=== PATIENT | male | born 1995 | race Caucasian/White ===

== ENCOUNTER 2022-10-31 09:34 | Emergency (ER) | payer OTHER, SELFPAY ==
--- NOTE | ~2022-10-31 | CT_ITS ---
EXAMINATION: CT thoracic spine wo con DATE: 10/31/2022 10:17 INDICATION: Mid back pain post injury while lifting TECHNIQUE: Computed tomography (CT) of the thoracic spine was performed without intravenous contrast. Automated exposure control and iterative reconstruction technique were employed. The dose-length pro duct was 921.24 mGy-cm. COMPARISON: CT abdomen and pelvis dated 08/31/2015 FINDINGS: 15 degrees thoracic dextroscoliosis. Sagittal alignment is normal. No significant change in chronic mild anterior wedging from T7 through T11 along with multiple Schmorl's nodes along all of t he endplates in the inferior endplate of T7 through the superior endplate of L1 which may reflect seq uela of prior Scheuermann's disease. No acute fractures. Multilevel minimal to mild disc height loss from T2-T3 through T12-L1. Multilevel mild facet osteoarthritis throughout the thoracic spine. No susie tral canal or neural foraminal stenosis. Visualized portion of the lungs are clear. Calcified right h ilar lymph nodes consistent with old granulomatous disease. IMPRESSION: 1. 15 degree thoracic dextroscoliosis with mild spondylosis. No acute osseous abnormality. 2. Stable appearance of chronic mild anterior wedging of multiple vertebral bodies along with multipl e Schmorl's nodes throughout the mid to lower thoracic spine which may reflect sequela of chronic Syed euermann's disease. Reviewed, dictated and finalized at location A. IMPRESSION: 1. 15 degree thoracic dextroscoliosis with mild spondylosis. No acute osseous a bnormality. 2. Stable appearance of chronic mild anterior wedging of multiple vertebral bod ies along with multiple Schmorl's nodes throughout the mid to lower thoracic sp ine which may reflect sequela of chronic Scheuermann's disease.
[2022-10-31 09:34] VITALS: BP 130/97; PULSE 70; RESP 14; TEMP 37.2; O2SAT 100
[2022-10-31 09:48] VITALS: BP 130/97; PULSE 70; RESP 14; O2SAT 100
--- NOTE | 2022-10-31 09:56 | ED.BACK ---
HPI - Back Pain/Injury General Chief Complaint: Back Pain/Injury Stated Complaint: back pain right side Time Seen by Provider: 10/31/22 09:55 Source: patient and RN notes reviewed Mode of arrival: ambulatory Limitations: no limitations History of Present Illness HPI Narrative: patient states he was lifting something at home last evening that was 50 60 lb. He says that he lifted wrong felt a pop on the right side of his back and now has significant pain on the right side as well. He denies any other paresthesias or weakness in his lower extremities. MD elicited complaint: back injury Pertinent past history: recent trauma Onset (ago): day(s) (1) Timing: constant Severity: moderate Similar Symptoms Previously: No Quality: sharp, stabbing and spasming Location: right upper back Radiation: none Exacerbating factors: movement, walking and deep breaths Relieving factors: immobilization Context: while lifting Associated symptoms: denies other symptoms Work related injury: No Related Data Home Medications Medication Instructions Recorded Confirmed divalproex 250 mg tablet,delayed 250 mg PO BID 10/31/22 10/31/22 release escitalopram oxalate 10 mg tablet 10 mg PO DAILY 10/31/22 10/31/22 Allergies Allergy/AdvReac Type Severity Reaction Status Date / Time Penicillins Allergy Mild Anaphylaxis Verified 10/31/22 09:47 Review of Systems Review of Systems: All systems reviewed & are unremarkable except as noted in HPI and below PMFSH Past Medical History Medical History (Updated 10/31/22 @ 11:01 by Kit Rao MD) Bipolar 1 disorder Social History Social History (Updated 10/31/22 @ 09:56 by Kit Rao MD) Smoking packs per day: 1 Smoking cigarettes per day: 20.0 Smoking status: Current every day smoker Tobacco type: cigarettes Exam Const: General: healthy appearing, no acute distress and alert Nutritional Appearance: well nourished Orientation/consciousness: patient oriented x3 Limitations: no limitations HENMT: Head: normal to inspection Ears: external ears normal Face/Nose/Sinus: Normal external nose present Face and sinus: normal facial exam Mouth: Yes moist mucous membranes Eyes: Conjunctivae: conjunctivae normal Pupils: Equal, round and reactive pupils present EOM: EOMs intact bilaterally Neck: Neck: normal visual inspection Resp: Effort & Inspection: normal respiratory effort Auscultation: clear to auscultation bilaterally Cardio: Rate: regular rate Rhythm: regular rhythm GI: GI Palp: Yes Soft to palpation and No Tenderness to palpation present (GI) Auscultation: normal bowel sounds Back/Spine/Pelvis: Cervical Spine: cervical ROM normal Thoracic/Lumbar Spine: straight leg raise negative bilaterally, pain with thoraco-lumbar ROM, paraspinal muscle tenderness on the right in the mid thoracic and in the lower thoracic, thoraco-lumbar ROM limited with forward flexion, with lateral flexion to the right, with rotation to the right and with rotation to the left and No thoracic spinal tenderness Skin: General skin exam: normal color Rashes: no rashes Neuro: General: patient oriented x3, moves all extremities, no focal motor deficits and CN's II-XI intact bilaterally Speech: normal speech Gait exam (Neuro): Normal gait present Extrem: General: normal to inspection and no clubbing, cyanosis or edema Psych: Mental Status: mental status grossly normal Affect: normal affect Attitude: cooperative Course Vital Signs Vital signs: Vital Signs Temperature 37.2 C 10/31/22 09:34 Pulse Rate 70 10/31/22 09:34 Respiratory Rate 14 10/31/22 09:34 Blood Pressure 130/97 H 10/31/22 09:34 Pulse Oximetry 100 10/31/22 09:34 Oxygen Delivery Room Air 10/31/22 09:34 Temperature 37.2 C 10/31/22 09:34 Pulse Rate 70 10/31/22 09:48 Respiratory Rate 14 10/31/22 09:48 Blood Pressure 130/97 H 10/31/22 09:48 Pulse Oximetry 100 10/31/22 09:48 Oxygen Delivery Ro
[2022-10-31] MEDS: KETOROLAC (*BKC) 60 MG/2 ML VIAL IM (10:18)
[2022-10-31 11:06] VITALS: BP 128/85; PULSE 73; RESP 18; TEMP 36.9; O2SAT 100
== END 2022-10-31 11:06 | disposition home or self-care (01) ==
PROVIDERS: Emergency Provider Emergency Medicine; PCP Family Medicine
DX: S29.019A Strain of muscle and tendon of unspecified wall of thorax, initial encounter (principal); F17.210 Nicotine dependence, cigarettes, uncomplicated; X50.0XXA Overexertion from strenuous movement or load, initial encounter; Y92.009 Unspecified place in unspecified non-institutional (private) residence as the place of occurrence of the external cause
CPT/HCPCS: 72128; 96372; 99284; J1885

== ENCOUNTER 2022-11-11 13:08 | Emergency (ER) | payer OTHER, SELFPAY ==
--- NOTE | ~2022-11-11 | CT_ITS ---
EXAMINATION: CT abdomen pelvis w con DATE: 11/11/2022 14:17 INDICATION: Rectal bleeding TECHNIQUE: Computed tomography (CT) of the abdomen and pelvis was performed with 100 cc Omnipaque 350 intravenous contrast. The dose-length product was 372.90 mGy-cm. Automated exposure control and iter ative reconstruction technique were employed. COMPARISON: CT dated 08/31/2015. FINDINGS: There is focal reticulonodular infiltrates of the right middle lobe with tree-in-bud config uration, most likely infectious/inflammatory. Heart size normal. No significant pleural or pericardia l effusion. No significant vascular abnormality. No lymphadenopathy. The liver, spleen, pancreas, adrenal glands and kidneys are unremarkable. Gallbladder is present. Colonic diverticulosis without evidence for div erticulitis. Normal appendix. Mild lumbar spondylosis. IMPRESSION: 1. No acute abdominal abnormality. 2: Focal reticulonodular infiltrates of the right middle lobe with tree-in-bud configuration, most li will infectious/inflammatory. Reviewed, dictated and finalized at location A. IMPRESSION: 1. No acute abdominal abnormality. 2: Focal reticulonodular infiltrates of the right middle lobe with tree-in-bud configuration, most likely infectious/inflammatory.
[2022-11-11 13:09] VITALS: BP 153/94; PULSE 65; RESP 18; TEMP 36.7; O2SAT 99
--- NOTE | 2022-11-11 13:12 | ED.GIBLEED ---
HPI - GI Bleed General Chief complaint: Abdominal Pain Stated complaint: rectal bleeding Time Seen by Provider: 11/11/22 13:10 History of Present Illness HPI Narrative: Pt presents with intermittent rectal bleeding when moving bowels for months. Pt says today passed large clot when moving bowels. Pt says most of the time it is bright red but today was clot. Pt does have pain in rectum but no abdominal pain. Pt said he thought it was hemorrhoids but grandfather of colon cancer and his convinced him to come get it checked out. Related Data Home Medications Medication Instructions Recorded Confirmed divalproex 250 mg tablet,delayed 250 mg PO BID 10/31/22 11/11/22 release escitalopram oxalate 10 mg tablet 10 mg PO DAILY 10/31/22 11/11/22 Allergies Allergy/AdvReac Type Severity Reaction Status Date / Time Penicillins Allergy Mild Anaphylaxis Verified 11/11/22 14:04 Review of Systems Review of Systems: All systems reviewed & are unremarkable except as noted in HPI and below PMFSH Past Medical History Medical History (Updated 11/11/22 @ 14:31 by Crystal Henson III, DO) Bipolar 1 disorder Social History Social History (Updated 10/31/22 @ 09:56 by Kit Rao MD) Smoking packs per day: 1 Smoking cigarettes per day: 20.0 Smoking status: Current every day smoker Tobacco type: cigarettes Exam Const: General: healthy appearing Nutritional Appearance: well nourished Orientation/consciousness: patient oriented x3 Limitations: no limitations Resp: Effort & Inspection: normal respiratory effort Auscultation: clear to auscultation bilaterally Cardio: Rate: regular rate Rhythm: regular rhythm GI: GI Palp: Yes Soft to palpation Auscultation: normal bowel sounds Rectal Exam: normal sphincter tone and No hemorrhoids Other: no external hemorrhoids no plalpated internal hemorrhoids Skin: General skin exam: normal color Neuro: General: patient oriented x3, moves all extremities and no focal motor deficits Speech: normal speech Extrem: General: normal to inspection and no clubbing, cyanosis or edema Psych: Mental Status: mental status grossly normal Affect: normal affect Attitude: cooperative Course Vital Signs Vital signs: Vital Signs Temperature 98.0 F 11/11/22 13:09 Pulse Rate 65 11/11/22 13:09 Respiratory Rate 18 11/11/22 13:09 Blood Pressure 153/94 H 11/11/22 13:09 Pulse Oximetry 99 11/11/22 13:09 Oxygen Delivery Room Air 11/11/22 13:09 Temperature 98.0 F 11/11/22 13:09 Pulse Rate 65 11/11/22 13:09 Respiratory Rate 18 11/11/22 13:09 Blood Pressure 153/94 H 11/11/22 13:09 Pulse Oximetry 99 11/11/22 13:09 Oxygen Delivery Room Air 11/11/22 13:09 MDM - GI Bleed MDM Narrative Medical decision making narrative: pt presents with intermittent rectal bleeding for months. Pt has some rectal pain but no abdominal pain. No external hemorrhoids noted and heme negative rectal. labs and CT look fine (no cough to explain chest findings). Pt will follow up with PCP to get referral for colonoscopy. Lab Data 11/11/22 13:21 11/11/22 13:21 Labs: Lab Results 11/11/22 11/11/22 Range/Units 13:10 13:21 WBC 9.0 (4.8-10.8) K/mm3 RBC 5.15 (4.70-6.10) M/mm3 Hgb 15.6 (14.0-18.0) g/dL Hct 45.7 (40.0-54.0) % MCV 88.7 (78.0-102.0) fL MCH 30.3 (27.0-31.0) pg MCHC 34.1 (32.0-36.0) g/dL RDW 12.1 (11.6-14.4) % Plt Count 209 (150-420) K/mm3 MPV 10.3 (8.7-11.0) fl Immature Gran % (Auto) 0.3 H (0.0-0.0) % Neut % (Auto) 64.2 (50.0-70.0) % Lymph % (Auto) 28.1 (18.0-42.0) % Eaton % (Auto) 6.2 (2.0-11.0) % Eos % (Auto) 0.8 L (1.0-6.0) % Baso % (Auto) 0.4 (0.0-1.0) % Lymph # (Auto) 2.52 (1.10-4.50) K/mm3 Eaton # (Auto) 0.56 (0.10-0.90) K/mm3 Eos # (Auto) 0.07 (0.02-0.50) K/mm3 Baso # (Auto) 0.04 (0.00-0.10) K/mm3 Abs Immat Gran (auto
[2022-11-11 13:24] LABS: Occult Blood Negative (Negative)
[2022-11-11 13:26] LABS: Basophils Absolute Auto 0.04 K/mm3 (0.00-0.10); Basophils Percent Auto 0.4 % (0.0-1.0); Eosinophils Absolute Auto 0.07 K/mm3 (0.02-0.50); Eosinophils Percent Auto 0.8 % (1.0-6.0); Hematocrit 45.7 % (40.0-54.0); Hemoglobin 15.6 g/dL (14.0-18.0); Immature Granulocyte Absolute 0.03 K/mm3 (0.00-0.00); Immature Granulocyte Percent A 0.3 % (0.0-0.0); Lymphocytes Absolute Auto 2.52 K/mm3 (1.10-4.50); Lymphocytes Percent Auto 28.1 % (18.0-42.0); Mean Corpuscular HGB Conc 34.1 g/dL (32.0-36.0); Mean Corpuscular Hemoglobin 30.3 pg (27.0-31.0); Mean Corpuscular Volume 88.7 fL (78.0-102.0); Mean Platelet Volume 10.3 fl (8.7-11.0); Monocytes Absolute Auto 0.56 K/mm3 (0.10-0.90); Monocytes Percent Auto 6.2 % (2.0-11.0); Neutrophils Absolute Auto 5.8 K/mm3 (1.7-7.2); Neutrophils Percent Auto 64.2 % (50.0-70.0); Platelet Count Result 209 K/mm3 (150-420); Red Blood Count 5.15 M/mm3 (4.70-6.10); Red Cell Distribution Width 12.1 % (11.6-14.4)
[2022-11-11 13:38] LABS: Partial Thromboplastin Time 25.9 SEC (23.90-30.70); Prothrombin Time 10.9 Seconds (9.50-12.10)
[2022-11-11 13:43] LABS: Alanine Aminotransferase 36 U/L (16-63); Alkaline Phosphatase 71 U/L (46-116); Anion Gap 7 mmol/L (8-16); Aspartate Amino Transferase 14 U/L (15-37); Bilirubin,Total 0.2 mg/dL (0.00-1.00); Blood Urea Nitrogen 11 mg/dL (7-18); Calcium 9.2 mg/dL (8.5-10.1); Carbon Dioxide 29 mmol/L (21-32); Chloride 106 mmol/L (98-108); Estimated Glomerular Filt Rate > 60; Glucose 94 mg/dL (70-99); Osmolality Calculated 293 mOsm/kg (285-295); Potassium 3.8 mmol/L (3.5-5.1); Sodium 142 mmol/L (136-145); Total Protein 7.4 g/dL (6.4-8.2)
[2022-11-11 14:35] VITALS: BP 140/78; PULSE 62; RESP 16; O2SAT 98
== END 2022-11-11 14:35 | disposition home or self-care (01) ==
PROVIDERS: Emergency Provider Emergency Medicine; PCP Family Medicine
DX: K65.2 Spontaneous bacterial peritonitis (principal); F17.210 Nicotine dependence, cigarettes, uncomplicated
CPT/HCPCS: 36415; 74177; 80053; 82272; 85025; 85610; 85730; 86850; 86900; 86901; 99284; Q9967

== ENCOUNTER 2023-03-18 14:57 | Outpatient (CLI) | payer OTHER, SELFPAY ==
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
== END 2023-03-18 14:58 | disposition home or self-care (01) ==
PROVIDERS: PCP Family Medicine; Visit Provider Family Medicine
DX: M25.521 Pain in right elbow (principal)
CPT/HCPCS: 73080

== ENCOUNTER 2024-02-17 16:23 | Outpatient (CLI) | payer OTHER, SELFPAY ==
[2024-02-17 16:45] LABS: Basophils Absolute Auto 0.03 K/mm3 (0.00-0.10); Basophils Percent Auto 0.5 % (0.0-1.0); Eosinophils Absolute Auto 0.05 K/mm3 (0.02-0.50); Eosinophils Percent Auto 0.8 % (1.0-6.0); Immature Granulocyte Absolute 0.01 K/mm3 (0.00-0.00); Immature Granulocyte Percent A 0.2 % (0.0-0.0); Lymphocytes Absolute Auto 2.23 K/mm3 (1.10-4.50); Mean Corpuscular HGB Conc 34.1 g/dL (32-36); Mean Corpuscular Hemoglobin 29.4 pg (27.0-31.0); Mean Corpuscular Volume 86.3 fL (78.0-102.0); Mean Platelet Volume 10.5 fl (8.7-11.0); Monocytes Absolute Auto 0.43 K/mm3 (0.10-0.90); Monocytes Percent Auto 7.1 % (2.0-11.0); Neutrophils Absolute Auto 3.28 K/mm3 (1.70-7.20); Neutrophils Percent Auto 54.4 % (50.0-70.0); Platelet Count Result 221 K/mm3 (150-420); Red Cell Distribution Width 11.4 % (11.6-14.4)
[2024-02-17 17:05] LABS: Alanine Aminotransferase 20 U/L (16-63); Albumin Level 4.4 g/dL (3.4-5.0); Alkaline Phosphatase 70 U/L (46-116); Anion Gap 12 mmol/L (4-12); Aspartate Amino Transferase 12 U/L (15-37); Bilirubin,Total 0.4 mg/dL (0.00-1.00); Blood Urea Nitrogen 10 mg/dL (7-18); Calcium 9.3 mg/dL (8.5-10.1); Carbon Dioxide 27 mmol/L (21-32); Chloride 105 mmol/L (98-108); Estimated Glomerular Filt Rate > 60; Glucose 83 mg/dL (70-99); Osmolality Calculated 296 mOsm/kg (285-295); Potassium 4.1 mmol/L (3.5-5.1); Sodium 144 mmol/L (136-145); Total Protein 7.3 g/dL (6.4-8.2)
== END 2024-02-17 16:24 | disposition home or self-care (01) ==
LOC: CHSLAB 16:26
PROVIDERS: PCP Family Medicine; Visit Provider Family Medicine
DX: R19.7 Diarrhea, unspecified (principal)
CPT/HCPCS: 36415; 80053; 85025